=== PATIENT | female | born 1960 | race Two or more races ===

== ENCOUNTER 2020-07-19 13:57 | Inpatient (IN) | payer MEDICAID, OTHER ==
[~2020-07-19] VITALS: Ht 160 cm; Wt 86.2 kg
[2020-07-19] MEDS ORDERED: ALBUTEROL SULF 2.5 MG/0.5ML(0.5%) NEB SOLN ONE (14:08)
[2020-07-19] MEDS ORDERED: IPRATROPIUM BROM 0.5 MG/2.5ML INH SOL ONE (14:08)
[2020-07-19] MEDS ORDERED: ALBUTEROL SULF 2.5 MG/0.5ML(0.5%) NEB SOLN NEB ONE (14:15)
[2020-07-19] MEDS ORDERED: IPRATROPIUM BROM 0.5 MG/2.5ML INH SOL NEB ONE (14:15)
[2020-07-19] MEDS ORDERED: methylPREDNISolone SOD SUCC 125 MG/2 ML VL IV ONE (14:15)
[2020-07-19 14:51] LABS: Basophils # (auto) 0 10 ^3/uL (0-0.2); Basophils % (auto) 0.4 % (0.0-2.0); Eosinophils # (auto) 0.2 10 ^3/uL (0-0.8); Eosinophils % (auto) 1.9 % (0.0-7.0); Hemoglobin 12.9 g/dL (12.2-16.2); Lymphocytes # (auto) 3.9 10 ^3/uL (0.4-5.4); Lymphocytes % (auto) 42.6 % (10.0-50.0); Mean Corpuscular Hemoglobin 31.3 pg (28.0-32.0); Mean Corpuscular Volume 89.4 fL (80.0-100.0); Monocytes # (auto) 0.5 10 ^3/uL (0-1.3); Monocytes % (auto) 5.2 % (0.0-12.0); Neutrophils # (auto) 4.6 10 ^3/uL (1.6-8.6); Neutrophils % (auto) 49.9 % (37.0-80.0); Nucleated Red Blood Cells % 0.1 %; Platelet Count (auto) 224 10^3/uL (140-450); Red Blood Cells 4.14 10^6/uL (4.0-5.20); Red Cell Distribution Width 13.9 % (11.8-14.3); White Blood Cell 9.2 10^3/uL (4.4-10.8)
[2020-07-19 15:04] LABS: Calcium 9.5 mg/dL (8.5-10.1); Chloride 104 mmol/L (98-107); Potassium 3.9 mmol/L (3.5-5.1); Sodium 139 mmol/L (136-145)
[2020-07-19 15:07] LABS: Alanine Aminotransferase 35 U/L (13-56); Anion Gap 7 (5-15); Aspartate Aminotransferase 56 U/L (15-37); BUN/Creatinine Ratio 21.7; Blood Urea Nitrogen 20 mg/dL (7-18); Carbon Dioxide 28 mmol/L (21-32); GFR African American 80 mL/min; GFR Non-African American 66 mL/min; Glucose 135 mg/dL (74-106)
[2020-07-19 15:13] LABS: Alkaline Phosphatase 93 U/L (45-117); Bilirubin, Total 0.4 mg/dL (0.2-1.0)
[2020-07-19 15:22] LABS: Lactic Acid w/Reflex 2.8 mmol/L (0.4-2.0)
[2020-07-19 15:24] LABS: INR 1.01 (0.9-1.15); Partial Thromboplastin Time 23.8 sec (23.0-31.2)
[2020-07-19] MEDS ORDERED: IOHEXOL 350 MG/ML 100ML IJ ONE (16:52)
[2020-07-19] MEDS ORDERED: AZITHROMYCIN 500MG/ 250ML 250 ML IV ONE (18:45)
[2020-07-19] MEDS ORDERED: PROMETHAZINE HCL 25 MG/ML 1ML IV PRN (19:30)
[2020-07-19] MEDS ORDERED: SODIUM CHLORIDE 0.9% 1,000 ML IV ONE (19:30)
[2020-07-19] MEDS: IPRATROPIUM BROM 0.5 MG/2.5ML INH SOL NEB SCH (19:30)
[2020-07-19] MEDS ORDERED: ACETAMINOPHEN 325 MG TAB PO PRN (19:30)
[2020-07-19] MEDS ORDERED: guaiFENesin-DM 100/10mg/5ml SYR PO PRN (19:30)
[2020-07-19] MEDS: ALBUTEROL SULF 2.5 MG/0.5ML(0.5%) NEB SOLN NEB SCH (19:30)
[2020-07-19] MEDS ORDERED: ANAS1TAB7 PO (19:52)
[2020-07-19] MEDS ORDERED: LISI-716 PO (19:52)
[2020-07-19] MEDS ORDERED: OME20T PO (19:52)
[2020-07-19] MEDS ORDERED: ONDA-180 PO (19:52)
[2020-07-19] MEDS ORDERED: DIPH25CA46 PO (19:52)
[2020-07-19] MEDS ORDERED: TRAM50TA2 PO (19:52)
[2020-07-19] MEDS ORDERED: GABA300C10 PO (19:52)
[2020-07-19] MEDS ORDERED: LORA-483 PO (19:52)
[2020-07-19] MEDS ORDERED: DULO1CAP6 PO (19:52)
[2020-07-19] MEDS ORDERED: NORT50CA57 PO (19:52)
[2020-07-19] MEDS ORDERED: AMLO-496 PO (19:52)
[2020-07-19] MEDS ORDERED: FURO40TA4 PO (19:54)
[2020-07-19] MEDS ORDERED: ZOLP5TAB5 PO (19:54)
[2020-07-19] MEDS ORDERED: BENZ100C97 PO (19:54)
[2020-07-19] MEDS ORDERED: HYDR25TA5 GT (19:54)
[2020-07-19] MEDS ORDERED: levoFLOXacin 500 MG TAB PO SCH (22:00)
[2020-07-19] MEDS ORDERED: NORTRIPTYLINE HCL 25 MG CAP PO SCH (22:00)
[2020-07-19] MEDS: GABAPENTIN 300 MG CAP PO SCH (22:34)
[2020-07-19 23:01] VITALS: BP 93/49
[2020-07-20] VITALS (8 sets, daily range): BP systolic 108–126; BP diastolic 59–75
[2020-07-20] MEDS ORDERED: PERCOT PO (02:35)
[2020-07-20] MEDS ORDERED: FURO40TA4 PO (02:35)
[2020-07-20 06:25] LABS: Basophils # (auto) 0 10 ^3/uL (0-0.2); Basophils % (auto) 0.1 % (0.0-2.0); Eosinophils # (auto) 0 10 ^3/uL (0-0.8); Hemoglobin 11.9 g/dL (12.2-16.2); Lymphocytes # (auto) 0.8 10 ^3/uL (0.4-5.4); Lymphocytes % (auto) 6.9 % (10.0-50.0); Mean Corpuscular Hemoglobin 30.5 pg (28.0-32.0); Mean Corpuscular Hgb Conc. 34.1 g/dL (32.0-36.0); Mean Corpuscular Volume 89.4 fL (80.0-100.0); Monocytes # (auto) 0.4 10 ^3/uL (0-1.3); Monocytes % (auto) 3.4 % (0.0-12.0); Neutrophils # (auto) 10.4 10 ^3/uL (1.6-8.6); Neutrophils % (auto) 89.6 % (37.0-80.0); Platelet Count (auto) 231 10^3/uL (140-450); Red Blood Cells 3.92 10^6/uL (4.0-5.20); Red Cell Distribution Width 13.5 % (11.8-14.3); White Blood Cell 11.5 10^3/uL (4.4-10.8)
[2020-07-20 06:38] LABS: BUN/Creatinine Ratio 23.1; Calcium 8.9 mg/dL (8.5-10.1); Potassium 4.1 mmol/L (3.5-5.1)
[2020-07-20] MEDS: ALBUTEROL SULF 2.5 MG/0.5ML(0.5%) NEB SOLN NEB SCH ×2 (06:44→13:44)
[2020-07-20] MEDS: IPRATROPIUM BROM 0.5 MG/2.5ML INH SOL NEB SCH ×2 (06:44→13:44)
[2020-07-20 06:50] LABS: Lactic Acid w/Reflex 2.4 mmol/L (0.4-2.0)
[2020-07-20] MEDS: GABAPENTIN 300 MG CAP PO SCH (10:00)
[2020-07-20] MEDS ORDERED: IPRIH IN (14:18)
[2020-07-20] MEDS ORDERED: LEVO-28 PO (14:18)
[2020-07-20] MEDS ORDERED: ALBUAER3 IN (14:18)
== END 2020-07-20 18:00 | disposition home health service (06) | DRG 139 ==
LOC: ER 13:57 → EDBD 13:57 → OBSVTOIN 19:19 → TELE 19:19 → TELE-WESTW 23:04
PROVIDERS: ADMIT Internal Medicine; ATTEND Internal Medicine
DX: J18.9 Pneumonia, unspecified organism (principal); J96.01 Acute respiratory failure with hypoxia; Z20.822 Contact with and (suspected) exposure to COVID-19; F41.9 Anxiety disorder, unspecified; F32.9 Major depressive disorder, single episode, unspecified; K21.9 Gastro-esophageal reflux disease without esophagitis; G62.9 Polyneuropathy, unspecified; I10 Essential (primary) hypertension; Z90.13 Acquired absence of bilateral breasts and nipples; Z85.3 Personal history of malignant neoplasm of breast; Z88.0 Allergy status to penicillin; Z88.5 Allergy status to narcotic agent; Z88.6 Allergy status to analgesic agent; Z82.49 Family history of ischemic heart disease and other diseases of the circulatory system; Z79.899 Other long term (current) drug therapy
CPT/HCPCS: 36415; 71045; 71275; 80048; 80053; 83605; 83735; 83880; 84484; 85025; 85379; 85610; 85730; 87040; 87426; 93005; 93970; 94640; 94644; 96365; 96366; 96375; G0378

== ENCOUNTER 2020-09-21 19:21 | Inpatient (IN) | payer MEDICAID ==
[~2020-09-21] VITALS: Ht 167.6 cm; Wt 87.3 kg
[~2020-09-21 19:21] MED LIST: ALBUAER3 IN; AMLO-496 PO; ANAS1TAB7 PO; BENZ100C97 PO; DIPH25CA46 PO; DULO1CAP6 PO; FURO40TA4 PO; GABA300C10 PO; HYDR25TA5 GT; IPRIH IN; LEVO-28 PO; LISI-716 PO; LORA-483 PO; NORT50CA57 PO; OME20T PO; ONDA-180 PO; PERCOT PO; TRAM50TA2 PO; ZOLP5TAB5 PO
[2020-09-21 22:12] LABS: Basophils # (auto) 0 10 ^3/uL (0-0.2); Basophils % (auto) 0.2 % (0.0-2.0); Eosinophils # (auto) 0 10 ^3/uL (0-0.8); Eosinophils % (auto) 0.3 % (0.0-7.0); Hematocrit 36.7 % (36.0-46.0); Hemoglobin 12.6 g/dL (12.2-16.2); Lymphocytes # (auto) 0.7 10 ^3/uL (0.4-5.4); Lymphocytes % (auto) 4.4 % (10.0-50.0); Mean Corpuscular Hemoglobin 30.7 pg (28.0-32.0); Mean Corpuscular Hgb Conc. 34.3 g/dL (32.0-36.0); Mean Corpuscular Volume 89.4 fL (80.0-100.0); Monocytes # (auto) 0.9 10 ^3/uL (0-1.3); Monocytes % (auto) 5.5 % (0.0-12.0); Neutrophils # (auto) 15.1 10 ^3/uL (1.6-8.6); Neutrophils % (auto) 89.6 % (37.0-80.0); Red Blood Cells 4.11 10^6/uL (4.0-5.20); Red Cell Distribution Width 14.1 % (11.8-14.3); White Blood Cell 16.8 10^3/uL (4.4-10.8)
[2020-09-21 22:26] LABS: Albumin 3.9 g/dL (3.4-5.0); Anion Gap 8 (5-15); Blood Urea Nitrogen 25 mg/dL (7-18); Calcium 9.2 mg/dL (8.5-10.1); Carbon Dioxide 27 mmol/L (21-32); Chloride 104 mmol/L (98-107); Glucose 110 mg/dL (74-106); Lipase 177 U/L (73-393); Magnesium 2.2 mg/dL (1.6-2.6); Potassium 3.9 mmol/L (3.5-5.1); Sodium 139 mmol/L (136-145)
[2020-09-21 22:29] LABS: Lactic Acid w/Reflex 2.4 mmol/L (0.4-2.0)
[2020-09-21 22:30] LABS: Alanine Aminotransferase 36 U/L (13-56); Alkaline Phosphatase 100 U/L (45-117); Aspartate Aminotransferase 27 U/L (15-37); BUN/Creatinine Ratio 20.5; Bilirubin, Total 0.3 mg/dL (0.2-1.0); Creatine Kinase IFCC 52 U/L (26-192); GFR African American 58 mL/min; GFR Non-African American 48 mL/min; Total Protein 8.1 g/dL (6.4-8.2)
[2020-09-21 22:36] LABS: Amphetamine Screen, Urine NEGATIVE (NEGATIVE); Barbiturate Scree,Urine NEGATIVE (NEGATIVE); Benzodiazephine Screen, Urine NEGATIVE (NEGATIVE); Cannabinoid Screen, Urine NEGATIVE (NEGATIVE); Cocaine Screen, Urine NEGATIVE (NEGATIVE); Opiate Scree,Urine NEGATIVE (NEGATIVE); Phencyclidine Screen, Urine NEGATIVE (NEGATIVE)
[2020-09-21 22:38] LABS: Urine Bacteria FEW /hpf (None Seen); Urine Blood Negative /uL (Negative); Urine Hyaline Cast FEW /lpf (0 - 2); Urine WBC 26 /hpf (0 - 5)
[2020-09-21 22:46] LABS: INR 1.01 (0.9-1.15)
[2020-09-21] MEDS ORDERED: cefTRIAXone 1GM/50ML D5W 50 ML IV ONE (23:00)
[2020-09-22] MEDS ORDERED: ONDANSETRON HCL 4 MG/2 ML VIAL IV PRN (05:00)
[2020-09-22] MEDS ORDERED: ACETAMINOPHEN 325 MG TAB PO PRN (05:00)
[2020-09-22 09:24] LABS: Albumin 3.4 g/dL (3.4-5.0); Calcium 8.9 mg/dL (8.5-10.1); Magnesium 2.6 mg/dL (1.6-2.6); Potassium 4.2 mmol/L (3.5-5.1)
[2020-09-22 09:27] LABS: BUN/Creatinine Ratio 29.1; Bilirubin, Total 0.4 mg/dL (0.2-1.0); Total Protein 7.7 g/dL (6.4-8.2)
[2020-09-22] MEDS: ENOXAPARIN SOD 100 MG/1 ML SYRINGE SC SCH ×2 (10:12→22:15)
[2020-09-22] MEDS: FUROSEMIDE 20 MG/2 ML VIAL IV SCH (10:13)
[2020-09-22] MEDS ORDERED: AZITHROMYCIN 500MG/ 250ML 250 ML IV ONE (15:00)
[2020-09-22] MEDS ORDERED: IOHEXOL 350 MG/ML 100ML IJ ONE (15:12)
[2020-09-22] MEDS: SODIUM CHLORIDE 0.9% 1,000 ML IV SCH (15:40)
[2020-09-22 20:00] VITALS: BP 127/70
[2020-09-22 22:00] VITALS: BP 127/70
[2020-09-22 22:23] LABS: Basophils # (auto) 0 10 ^3/uL (0-0.2); Basophils % (auto) 0.4 % (0.0-2.0); Eosinophils # (auto) 0.3 10 ^3/uL (0-0.8); Eosinophils % (auto) 3.3 % (0.0-7.0); Hematocrit 37.5 % (36.0-46.0); Lymphocytes # (auto) 1.9 10 ^3/uL (0.4-5.4); Lymphocytes % (auto) 25.4 % (10.0-50.0); Mean Corpuscular Hemoglobin 30.6 pg (28.0-32.0); Mean Corpuscular Hgb Conc. 34.6 g/dL (32.0-36.0); Mean Corpuscular Volume 88.5 fL (80.0-100.0); Monocytes # (auto) 0.5 10 ^3/uL (0-1.3); Neutrophils # (auto) 4.9 10 ^3/uL (1.6-8.6); Neutrophils % (auto) 64.9 % (37.0-80.0); Red Blood Cells 4.24 10^6/uL (4.0-5.20); Red Cell Distribution Width 13.7 % (11.8-14.3); White Blood Cell 7.6 10^3/uL (4.4-10.8)
[2020-09-22 22:48] LABS: BUN/Creatinine Ratio 25.8; Calcium 8.8 mg/dL (8.5-10.1); Potassium 3.8 mmol/L (3.5-5.1)
[2020-09-22] MEDS ORDERED: cefTRIAXone 1GM/50ML D5W 50 ML IV SCH (23:00)
[2020-09-23 05:00] VITALS: BP 114/71
[2020-09-23] MEDS: SODIUM CHLORIDE 0.9% 1,000 ML IV SCH (07:40)
[2020-09-23 08:08] LABS: Basophils # (auto) 0 10 ^3/uL (0-0.2); Basophils % (auto) 0.6 % (0.0-2.0); Eosinophils # (auto) 0.3 10 ^3/uL (0-0.8); Eosinophils % (auto) 2.9 % (0.0-7.0); Hematocrit 36.5 % (36.0-46.0); Hemoglobin 12.9 g/dL (12.2-16.2); Lymphocytes % (auto) 22.6 % (10.0-50.0); Mean Corpuscular Hgb Conc. 35.3 g/dL (32.0-36.0); Mean Corpuscular Volume 87.8 fL (80.0-100.0); Monocytes # (auto) 0.5 10 ^3/uL (0-1.3); Monocytes % (auto) 5.5 % (0.0-12.0); Neutrophils % (auto) 68.4 % (37.0-80.0); Nucleated Red Blood Cells % 0.1 %; Red Blood Cells 4.16 10^6/uL (4.0-5.20); Red Cell Distribution Width 13.6 % (11.8-14.3); White Blood Cell 8.7 10^3/uL (4.4-10.8)
[2020-09-23 08:16] LABS: Potassium 3.7 mmol/L (3.5-5.1)
[2020-09-23 08:20] LABS: BUN/Creatinine Ratio 25.5; Calcium 8.6 mg/dL (8.5-10.1)
[2020-09-23 09:00] VITALS: BP 130/83
[2020-09-23] MEDS: ENOXAPARIN SOD 100 MG/1 ML SYRINGE SC SCH (10:00)
[2020-09-23] MEDS: FUROSEMIDE 20 MG/2 ML VIAL IV SCH (10:00)
[2020-09-23] MEDS ORDERED: AZITHROMYCIN 500MG/ 250ML 250 ML IV SCH (10:00)
[2020-09-23] MEDS ORDERED: PANTOPRAZOLE 40 MG TAB PO SCH (10:00)
[2020-09-23 13:00] VITALS: BP 115/78
[2020-09-23] MEDS ORDERED: LEVO-28 PO (16:36)
[2020-09-23] MEDS ORDERED: PERCOT PO (16:36)
[2020-09-23 16:53] VITALS: BP 141/77
[2020-09-23 16:54] VITALS: BP 130/83
[2020-09-23] MEDS ORDERED: AMITRIPTYLINE HCL 25 MG TAB PO SCH (22:00)
[2020-09-25 09:17] LABS: Folate (Folic Acid) > 24.00 ng/mL (5.38-24)
== END 2020-09-23 20:00 | disposition home or self-care (01) | DRG 52 ==
LOC: ER 19:21 → EDBD 19:21 → TELE 09-22 04:53 → TELE-CENTR 09-22 20:31
PROVIDERS: ADMIT Hospitalist; ATTEND Hospitalist
DX: G93.41 Metabolic encephalopathy (principal); J96.22 Acute and chronic respiratory failure with hypercapnia; N17.9 Acute kidney failure, unspecified; I11.0 Hypertensive heart disease with heart failure; I50.9 Heart failure, unspecified; N39.0 Urinary tract infection, site not specified; E78.5 Hyperlipidemia, unspecified; F32.9 Major depressive disorder, single episode, unspecified; G89.29 Other chronic pain; F41.9 Anxiety disorder, unspecified; J98.11 Atelectasis; J44.9 Chronic obstructive pulmonary disease, unspecified; Z20.822 Contact with and (suspected) exposure to COVID-19; M54.5 Low back pain; K21.9 Gastro-esophageal reflux disease without esophagitis; Z79.899 Other long term (current) drug therapy; Z80.3 Family history of malignant neoplasm of breast; Z82.49 Family history of ischemic heart disease and other diseases of the circulatory system; Z83.3 Family history of diabetes mellitus; Z85.3 Personal history of malignant neoplasm of breast; Z90.12 Acquired absence of left breast and nipple; Z88.6 Allergy status to analgesic agent; Z88.5 Allergy status to narcotic agent; Z88.0 Allergy status to penicillin; Z90.49 Acquired absence of other specified parts of digestive tract
CPT/HCPCS: 36415; 36600; 70450; 71045; 71275; 78582; 80048; 80053; 80307; 81001; 82550; 82607; 82746; 82805; 83605; 83690; 83735; 83880; 84443; 84484; 85025; 85379; 85610; 87040; 87086; 87426; 93306; 93970; 96365; 96367; 96375; 97163; G0378; J0696

== ENCOUNTER 2020-11-14 18:03 | Emergency (ER) | payer MEDICAID ==
[~2020-11-14] VITALS: Ht 160 cm; Wt 90.7 kg
[~2020-11-14 18:03] MED LIST changes: +DIPH-599 PO; -DIPH25CA46 PO; -HYDR25TA5 GT
[2020-11-14 18:10] VITALS: BP 127/72
[2020-11-14] MEDS ORDERED: MORPHINE SULFATE 4 MG/ML SYR/VIAL IV ONE ×2 (18:30→20:15)
[2020-11-14] MEDS ORDERED: ONDANSETRON HCL 4 MG/2 ML VIAL IV ONE (18:30)
[2020-11-14 19:13] LABS: Urine Bacteria NONE SEEN /hpf (None Seen); Urine Blood Negative /uL (Negative); Urine Specific Gravity 1.003 (1.001-1.035); Urine WBC 2 /hpf (0 - 5)
[2020-11-14 19:17] LABS: Basophils # (auto) 0.1 10 ^3/uL (0-0.2); Basophils % (auto) 0.7 % (0.0-2.0); Eosinophils # (auto) 0.2 10 ^3/uL (0-0.8); Eosinophils % (auto) 2.6 % (0.0-7.0); Hematocrit 37.5 % (36.0-46.0); Hemoglobin 12.7 g/dL (12.2-16.2); Lymphocytes # (auto) 1.7 10 ^3/uL (0.4-5.4); Mean Corpuscular Hemoglobin 29.9 pg (28.0-32.0); Mean Corpuscular Hgb Conc. 33.9 g/dL (32.0-36.0); Mean Corpuscular Volume 88.4 fL (80.0-100.0); Monocytes # (auto) 0.6 10 ^3/uL (0-1.3); Monocytes % (auto) 7.7 % (0.0-12.0); Neutrophils # (auto) 4.7 10 ^3/uL (1.6-8.6); Nucleated Red Blood Cells % 0.1 %; Red Blood Cells 4.24 10^6/uL (4.0-5.20); Red Cell Distribution Width 14.1 % (11.8-14.3); White Blood Cell 7.3 10^3/uL (4.4-10.8)
[2020-11-14 19:26] LABS: Albumin 3.8 g/dL (3.4-5.0); Calcium 9.1 mg/dL (8.5-10.1); Potassium 3.7 mmol/L (3.5-5.1)
[2020-11-14 19:29] LABS: BUN/Creatinine Ratio 16.5; Bilirubin, Total 0.4 mg/dL (0.2-1.0); Total Protein 7.7 g/dL (6.4-8.2)
[2020-11-14 19:31] LABS: INR 1.01 (0.9-1.15); Partial Thromboplastin Time 27.9 sec (23.6-33.0)
[2020-11-14] MEDS ORDERED: IBUPROFEN 600 MG TAB PO ONE (20:15)
[2020-11-14] MEDS ORDERED: ONDANSETRON ODT 4 MG TAB PO ONE (20:15)
== END 2020-11-15 02:18 | disposition left against medical advice (07) ==
LOC: ER 18:08
DX: K46.9 Unspecified abdominal hernia without obstruction or gangrene (principal); R10.32 Left lower quadrant pain; I10 Essential (primary) hypertension; Z90.49 Acquired absence of other specified parts of digestive tract; Z85.3 Personal history of malignant neoplasm of breast; Z53.29 Procedure and treatment not carried out because of patient's decision for other reasons; Z88.6 Allergy status to analgesic agent; Z88.0 Allergy status to penicillin; Z88.8 Allergy status to other drugs, medicaments and biological substances; Z79.899 Other long term (current) drug therapy
CPT/HCPCS: 36415; 74176; 80053; 81001; 83690; 85025; 85610; 85730

== ENCOUNTER 2021-04-12 01:22 | Emergency (ER) | payer MEDICAID ==
[~2021-04-12] VITALS: Ht 162.6 cm; Wt 77.1 kg
[2021-04-12 03:14] LABS: Basophils # (auto) 0 10 ^3/uL (0-0.2); Basophils % (auto) 0.4 % (0.0-2.0); Eosinophils # (auto) 0.3 10 ^3/uL (0-0.8); Eosinophils % (auto) 2.1 % (0.0-7.0); Hematocrit 33.1 % (36.0-46.0); Hemoglobin 11.1 g/dL (12.2-16.2); Lymphocytes # (auto) 1.4 10 ^3/uL (0.4-5.4); Lymphocytes % (auto) 11.3 % (10.0-50.0); Mean Corpuscular Hgb Conc. 33.5 g/dL (32.0-36.0); Mean Corpuscular Volume 89.5 fL (80.0-100.0); Monocytes % (auto) 7.8 % (0.0-12.0); Neutrophils # (auto) 9.7 10 ^3/uL (1.6-8.6); Neutrophils % (auto) 78.4 % (37.0-80.0); Red Cell Distribution Width 14.5 % (11.8-14.3); White Blood Cell 12.4 10^3/uL (4.4-10.8)
[2021-04-12 03:21] LABS: Albumin 3.1 g/dL (3.4-5.0); BUN/Creatinine Ratio 21.9; Potassium 3.9 mmol/L (3.5-5.1)
[2021-04-12 03:24] LABS: Bilirubin, Total 0.6 mg/dL (0.2-1.0); Total Protein 6.8 g/dL (6.4-8.2)
[2021-04-12] MEDS ORDERED: SODIUM CHLORIDE 0.9% 500 ML IV ONE ×2 (03:30→04:30)
[2021-04-12] MEDS ORDERED: IOHEXOL 300 MG/ML 100ML BOTTLE IJ ONE (06:58)
[2021-04-12 08:35] VITALS: BP 112/56
== END 2021-04-12 09:12 | disposition home or self-care (01) ==
LOC: EDBD 01:22 → ER 01:22
DX: K43.9 Ventral hernia without obstruction or gangrene (principal); R55 Syncope and collapse; Z20.822 Contact with and (suspected) exposure to COVID-19
CPT/HCPCS: 36415; 70450; 72125; 74177; 80053; 83605; 85025; 87426; 93005; 96360; 99285; J7030; Q9967

== ENCOUNTER 2021-09-27 11:00 | Inpatient (IN) | payer MEDICAID ==
[~2021-09-27] VITALS: Ht 165.1 cm; Wt 74.1 kg
[2021-09-27 12:36] LABS: Basophils # (auto) 0.1 10 ^3/uL (0-0.2); Basophils % (auto) 0.4 % (0.0-2.0); Eosinophils # (auto) 0 10 ^3/uL (0-0.8); Eosinophils % (auto) 0.4 % (0.0-7.0); Hemoglobin 13.5 g/dL (12.2-16.2); Lymphocytes # (auto) 1.3 10 ^3/uL (0.4-5.4); Lymphocytes % (auto) 9.3 % (10.0-50.0); Mean Corpuscular Hemoglobin 28.3 pg (28.0-32.0); Mean Corpuscular Hgb Conc. 33.6 g/dL (32.0-36.0); Mean Corpuscular Volume 84.1 fL (80.0-100.0); Monocytes # (auto) 0.9 10 ^3/uL (0-1.3); Monocytes % (auto) 6.5 % (0.0-12.0); Neutrophils # (auto) 11.3 10 ^3/uL (1.6-8.6); Neutrophils % (auto) 83.4 % (37.0-80.0); Nucleated Red Blood Cells % 0.1 %; Red Blood Cells 4.76 10^6/uL (4.0-5.20); Red Cell Distribution Width 14.1 % (11.8-14.3); White Blood Cell 13.5 10^3/uL (4.4-10.8)
[2021-09-27 13:05] LABS: Calcium 9.2 mg/dL (8.5-10.1); Magnesium 2.1 mg/dL (1.6-2.6); Potassium 3.5 mmol/L (3.5-5.1)
[2021-09-27 13:12] LABS: Albumin 3.9 g/dL (3.4-5.0); BUN/Creatinine Ratio 15.8; Total Protein 7.8 g/dL (6.4-8.2)
[2021-09-27] MEDS ORDERED: ONDANSETRON HCL 4 MG/2 ML VIAL IV ONE (15:45)
[2021-09-27] MEDS ORDERED: MORPHINE SULFATE 4 MG/ML SYR/VIAL IV ONE (15:45)
[2021-09-27] MEDS ORDERED: ONDANSETRON HCL 4 MG/2 ML VIAL IV PRN (18:15)
[2021-09-27] MEDS ORDERED: NITROGLYCERIN 0.4 MG SL TAB SL PRN (18:15)
[2021-09-27] MEDS: MORPHINE SULFATE INJ 2 MG/ml SYRG IV PRN ×2 (18:39→22:45)
[2021-09-27] MEDS: SODIUM CHLORIDE 0.9% 1,000 ML IV SCH (18:39)
[2021-09-27] MEDS ORDERED: cefTRIAXone 1GM/50ML D5W 50 ML IV ONE (19:30)
[2021-09-27 22:00] VITALS: BP 152/84
[2021-09-27 22:33] VITALS: BP_SYST 152; BP_DIAS 79; BP_DIAS 84
[2021-09-27] MEDS ORDERED: diphenhdrAMINE HCL 50 MG/1 ML VL IV PRN (23:30)
[2021-09-28] MEDS: MORPHINE SULFATE INJ 2 MG/ml SYRG IV PRN ×4 (04:08→22:00)
[2021-09-28 04:30] LABS: Urine Bacteria FEW /hpf (None Seen); Urine Blood Negative /uL (Negative); Urine Mucus FEW (None Seen); Urine Specific Gravity 1.011 (1.001-1.035); Urine WBC 36 /hpf (0 - 5)
[2021-09-28 05:00] VITALS: BP 164/74
[2021-09-28 05:51] LABS: Calcium 8.2 mg/dL (8.5-10.1); Potassium 3.2 mmol/L (3.5-5.1)
[2021-09-28 05:54] LABS: BUN/Creatinine Ratio 18.9
[2021-09-28 05:57] LABS: Basophils # (auto) 0 10 ^3/uL (0-0.2); Basophils % (auto) 0.3 % (0.0-2.0); Eosinophils # (auto) 0.1 10 ^3/uL (0-0.8); Eosinophils % (auto) 0.8 % (0.0-7.0); Hematocrit 35.7 % (36.0-46.0); Hemoglobin 12.3 g/dL (12.2-16.2); Lymphocytes % (auto) 6.8 % (10.0-50.0); Mean Corpuscular Hemoglobin 28.4 pg (28.0-32.0); Mean Corpuscular Hgb Conc. 34.3 g/dL (32.0-36.0); Mean Corpuscular Volume 82.7 fL (80.0-100.0); Monocytes # (auto) 1.2 10 ^3/uL (0-1.3); Monocytes % (auto) 8.7 % (0.0-12.0); Neutrophils # (auto) 11.8 10 ^3/uL (1.6-8.6); Neutrophils % (auto) 83.4 % (37.0-80.0); Nucleated Red Blood Cells % 0.4 %; Red Blood Cells 4.32 10^6/uL (4.0-5.20); Red Cell Distribution Width 14.2 % (11.8-14.3); White Blood Cell 14.2 10^3/uL (4.4-10.8)
[2021-09-28 06:12] LABS: INR 1.03 (0.9-1.15); Partial Thromboplastin Time 30.6 sec (24.6-33.4)
[2021-09-28] MEDS: hydrALAZINE HCL 20 MG/ML VL IV PRN (06:14)
[2021-09-28] MEDS: SODIUM CHLORIDE 0.9% 1,000 ML IV SCH ×3 (06:30→16:11)
[2021-09-28 09:00] VITALS: BP 136/74
[2021-09-28] MEDS: cefTRIAXone 1GM/50ML D5W 50 ML IV SCH (09:02)
[2021-09-28 13:00] VITALS: BP 130/69
[2021-09-28 16:37] VITALS: BP 129/74
[2021-09-28 22:03] VITALS: BP 117/55
[2021-09-29] MEDS: MORPHINE SULFATE INJ 2 MG/ml SYRG IV PRN ×4 (02:14→22:08)
[2021-09-29 05:03] VITALS: BP 116/61
[2021-09-29 09:00] VITALS: BP 129/62
[2021-09-29] MEDS: cefTRIAXone 1GM/50ML D5W 50 ML IV SCH (09:00)
[2021-09-29] MEDS: SODIUM CHLORIDE 0.9% 1,000 ML IV SCH ×2 (10:15→20:15)
[2021-09-29 13:00] VITALS: BP 119/64
[2021-09-29 16:50] VITALS: BP 135/74
[2021-09-29] MEDS: POTASSIUM CHL 20MEQ/100ML 100 ML IV SCH ×2 (18:15→20:44)
[2021-09-29 22:00] VITALS: BP 130/60
[2021-09-30] MEDS: POTASSIUM CHL 20MEQ/100ML 100 ML IV SCH (01:51)
[2021-09-30] MEDS: MORPHINE SULFATE INJ 2 MG/ml SYRG IV PRN ×5 (02:01→22:20)
[2021-09-30] MEDS: SODIUM CHLORIDE 0.9% 1,000 ML IV SCH ×2 (04:52→16:15)
[2021-09-30 05:00] VITALS: BP 143/77
[2021-09-30] MEDS: cefTRIAXone 1GM/50ML D5W 50 ML IV SCH (08:39)
[2021-09-30 08:41] VITALS: BP 161/62
[2021-09-30 13:00] VITALS: BP 152/68
[2021-09-30 17:00] VITALS: BP 156/76
[2021-09-30 22:00] VITALS: BP 161/69
[2021-09-30] MEDS: hydrALAZINE HCL 20 MG/ML VL IV PRN (23:29)
[2021-10-01] MEDS: SODIUM CHLORIDE 0.9% 1,000 ML IV SCH ×2 (02:15→12:15)
[2021-10-01] MEDS: MORPHINE SULFATE INJ 2 MG/ml SYRG IV PRN ×3 (03:47→23:07)
[2021-10-01 05:00] VITALS: BP 112/67
[2021-10-01 08:00] VITALS: BP 162/66
[2021-10-01 09:00] VITALS: BP 162/66
[2021-10-01] MEDS: cefTRIAXone 1GM/50ML D5W 50 ML IV SCH (09:33)
[2021-10-01 13:00] VITALS: BP 158/73
[2021-10-01] MEDS ORDERED: FAMOTIDINE (10MG/ML) 2ML VL IV ONE ×2 (16:35→21:00)
[2021-10-01] MEDS ORDERED: HYDROmorphone HCL 2 MG/ML VL/or syr ONE ×2 (16:39→18:02)
[2021-10-01] MEDS ORDERED: MIDAZOLAM HCL 2MG/2ML 2ml VIAL (1mg/ml) ONE (16:40)
[2021-10-01] MEDS ORDERED: fentaNYL CITRATE 100 MCG/2 ML VL ONE (16:40)
[2021-10-01] MEDS ORDERED: ONDANSETRON HCL 4 MG/2 ML VIAL ONE (16:41)
[2021-10-01] MEDS ORDERED: DexAMETHasone SOD PHOS 10MG/1ML VIAL INJ ONE (16:41)
[2021-10-01] MEDS ORDERED: GLYCOPYRROLATE 0.2 MG/ML 1ML VIAL ONE (16:41)
[2021-10-01] MEDS ORDERED: PROPOFOL 10 MG/ML 20 ML IV ONE (16:41)
[2021-10-01] MEDS ORDERED: ePHEDrine SULFATE 50 MG/ML AMP ONE (16:41)
[2021-10-01] MEDS ORDERED: ceFAZolin 1GM VL ONE (17:26)
[2021-10-01] MEDS ORDERED: HYDROmorphone HCL 2 MG/ML VL/or syr IV PRN ×2 (18:00)
[2021-10-01] MEDS ORDERED: ONDANSETRON HCL 4 MG/2 ML VIAL IV PRN (18:00)
[2021-10-01] MEDS: diphenhdrAMINE HCL 50 MG/1 ML VL IV PRN (18:15)
[2021-10-01] MEDS: D5W/SOD CHL 0.45%/KCL 20MEQ 1,000 ML IV SCH (19:15)
[2021-10-01] MEDS ORDERED: methylPREDNISolone SOD SUCC 125 MG/2 ML VL IV ONE (21:00)
[2021-10-01 22:00] VITALS: BP 126/68
[2021-10-02] MEDS: D5W/SOD CHL 0.45%/KCL 20MEQ 1,000 ML IV SCH ×4 (02:20→21:49)
[2021-10-02] MEDS: MORPHINE SULFATE INJ 2 MG/ml SYRG IV PRN ×5 (02:57→21:52)
[2021-10-02 05:00] VITALS: BP 147/75
[2021-10-02 09:00] VITALS: BP 163/72
[2021-10-02] MEDS: PANTOPRAZOLE 40 MG/10 ML VIAL INJ IV SCH (09:13)
[2021-10-02] MEDS: cefTRIAXone 1GM/50ML D5W 50 ML IV SCH (09:24)
[2021-10-02 13:00] VITALS: BP 162/90
[2021-10-02 16:22] LABS: BUN/Creatinine Ratio 18.4; Calcium 9.2 mg/dL (8.5-10.1)
[2021-10-02 16:51] VITALS: BP 155/77
[2021-10-02 22:00] VITALS: BP 157/78
[2021-10-03] MEDS: diphenhdrAMINE HCL 50 MG/1 ML VL IV PRN ×2 (01:08→13:25)
[2021-10-03 05:02] VITALS: BP 147/82
[2021-10-03 06:00] LABS: Basophils # (auto) 0 10 ^3/uL (0-0.2); Basophils % (auto) 0.2 % (0.0-2.0); Eosinophils # (auto) 0.2 10 ^3/uL (0-0.8); Eosinophils % (auto) 1.7 % (0.0-7.0); Lymphocytes # (auto) 2.1 10 ^3/uL (0.4-5.4); Lymphocytes % (auto) 19.7 % (10.0-50.0); Mean Corpuscular Hemoglobin 29.7 pg (28.0-32.0); Mean Corpuscular Hgb Conc. 35.3 g/dL (32.0-36.0); Mean Corpuscular Volume 83.9 fL (80.0-100.0); Monocytes # (auto) 0.8 10 ^3/uL (0-1.3); Monocytes % (auto) 7.3 % (0.0-12.0); Neutrophils # (auto) 7.5 10 ^3/uL (1.6-8.6); Neutrophils % (auto) 71.1 % (37.0-80.0); Red Cell Distribution Width 14.4 % (11.8-14.3); White Blood Cell 10.6 10^3/uL (4.4-10.8)
[2021-10-03 06:12] LABS: BUN/Creatinine Ratio 19.6; Calcium 8.6 mg/dL (8.5-10.1)
[2021-10-03 09:00] VITALS: BP 128/69
[2021-10-03] MEDS: cefTRIAXone 1GM/50ML D5W 50 ML IV SCH (09:17)
[2021-10-03] MEDS: PANTOPRAZOLE 40 MG/10 ML VIAL INJ IV SCH (10:21)
[2021-10-03 13:00] VITALS: BP 139/67
[2021-10-03] MEDS: MORPHINE SULFATE INJ 2 MG/ml SYRG IV PRN (13:25)
[2021-10-03 16:49] VITALS: BP 140/80
[2021-10-03] MEDS: D5W/SOD CHL 0.45%/KCL 20MEQ 1,000 ML IV SCH (21:45)
[2021-10-03] MEDS: hydrALAZINE HCL 20 MG/ML VL IV PRN (21:46)
[2021-10-03 22:00] VITALS: BP 173/80
[2021-10-03 22:50] VITALS: BP 125/75
[2021-10-04 05:00] VITALS: BP 130/61
[2021-10-04 08:00] VITALS: BP 136/52
[2021-10-04 09:00] VITALS: BP 136/52
[2021-10-04] MEDS: cefTRIAXone 1GM/50ML D5W 50 ML IV SCH (09:09)
[2021-10-04] MEDS: D5W/SOD CHL 0.45%/KCL 20MEQ 1,000 ML IV SCH (09:39)
[2021-10-04] MEDS: PANTOPRAZOLE 40 MG/10 ML VIAL INJ IV SCH (10:04)
[2021-10-04] MEDS ORDERED: DOXY-286 PO (11:54)
[2021-10-04] MEDS: diphenhdrAMINE HCL 50 MG/1 ML VL IV PRN (13:53)
[2021-10-04] MEDS: MORPHINE SULFATE INJ 2 MG/ml SYRG IV PRN (13:53)
[2021-10-04 15:39] VITALS: BP 142/92
== END 2021-10-04 17:12 | disposition home or self-care (01) | DRG 227 ==
LOC: EDBD 11:00 → ER 11:00 → TELE 18:14 → TELE-WESTW 21:50
PROVIDERS: ADMIT Nurse Practitioner Family; ATTEND Hospitalist
PROC: 0WUF0JZ Supplement Abdominal Wall with Synthetic Substitute, Open Approach (ICD-10-PCS; principal; 2021-10-01 16:49)
PROC: 05H933Z Insertion of Infusion Device into Right Brachial Vein, Percutaneous Approach (ICD-10-PCS; 2021-10-03)
PROC: B54MZZA Ultrasonography of Right Upper Extremity Veins, Guidance (ICD-10-PCS; 2021-10-03)
DX: K43.9 Ventral hernia without obstruction or gangrene (principal); E03.9 Hypothyroidism, unspecified; Z20.822 Contact with and (suspected) exposure to COVID-19; E11.9 Type 2 diabetes mellitus without complications; E78.5 Hyperlipidemia, unspecified; E87.6 Hypokalemia; I10 Essential (primary) hypertension; J44.9 Chronic obstructive pulmonary disease, unspecified; N39.0 Urinary tract infection, site not specified; Z88.5 Allergy status to narcotic agent; Z88.0 Allergy status to penicillin; Z88.8 Allergy status to other drugs, medicaments and biological substances; Z79.899 Other long term (current) drug therapy; Z85.3 Personal history of malignant neoplasm of breast; Z90.13 Acquired absence of bilateral breasts and nipples; Z98.84 Bariatric surgery status
CPT/HCPCS: 36415; 71045; 74176; 80048; 80053; 81001; 82150; 83036; 83690; 83735; 84443; 84484; 85025; 85610; 85730; 87040; 87086; 93005; 96361; 96365; 96375; 96376; C9113; G0378; J0690; J0696; J1100; J2250; J2405; J2704; J3480; J3490